=== PATIENT | male | born 1955 | race Caucasian/White ===

== ENCOUNTER 2020-10-31 11:08 | Emergency (ER) | payer MEDICAID, SELFPAY ==
[2020-10-31 11:18] VITALS: BP 120/79; PULSE 105; RESP 32; TEMP 36.9; O2SAT 92; BMI 31.9
--- NOTE | 2020-10-31 11:27 | XR_ITS ---
WS: [id number] Exam: XR chest 1V portable [id number] Date/Time of Exam: 10/31/2020 11:27 AM Reason For Exam: chest pain Comparison 07/16/2017. There are mild groundglass infiltrates in the mid and lower left lung and also the right lower lung z one. Normal cardiomediastinal structures and bony elements. Operative fusion of the lower cervical sp ine. Anchoring screw in the left humeral head. XR/XR chest 1V portable [id number] IMPRESSION: 1. Mild groundglass infiltrates in the mid and lower left lung and right lower lung zone suggesting pneumonia.
--- NOTE | 2020-10-31 11:27 | ECG_ITS ---
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 Measurements Intervals [place] Rate: 104 P: 55 [place]: 172 QRS: 90 QRSD: 98 T: 62 QT: 341 QTc: 450 Interpretive Statements SINUS TACHYCARDIA POSSIBLE LEFT ATRIAL ENLARGEMENT [-0.1mV P WAVE IN V1/V2] ABNORMAL RHYTHM ECG No previous ECG available for comparison Electronically Signed On 10-31-2020 15:01:17 WIRED MUSIC OPERATOR by Carroll Thao M.D. [email or web address] Companymagee general hospitalEllevationpromedica toledo hospitalClipClock/store/NU/[id number] f
--- NOTE | 2020-10-31 11:51 | ED_ITS ---
HPI - Chest Pain General: Chief Complaint: Chest Pain Stated Complaint: CHEST PAINS Time Seen by Provider: 10/31/20 11:23 History of Present Illness: HPI narrative: The patient is a 65-year-old male with past medical history coronary artery disease, ID x2, COPD who comes to the ER complaining of left-sided chest pain that feels similar to previous ID. He says he had the same episode yesterday and took 2 nitroglycerin which helped relieve his pain. Also says he passed out yesterday at some point and recovered spontaneously. Also admits shortness of breath and says he used to have prescriptions for albuterol but the [place] quit sending them to him for some reason he does not know. He has a history of anaphylactic reaction to aspirin and will not be given this medication MD complaint: chest pain Pertinent past history: coronary artery disease and prior ID Onset (ago): hour(s) (1) Timing of current episode: episodic Prior episodes: Yes Onset: during rest and during exertion Pain location: substernal and left chest Pain radiation: none Severity: moderate Quality: heaviness and similar to prior ID Relieving factors: nitroglycerin Exacerbating factors: exertion Associated symptoms: Reports dyspnea; Deny fever(s), leg edema, nausea, palpitations or vomiting Treatment prior to arrival: none Review of Systems General: Reports: 10 or more systems reviewed and unremarkable except in HPI and below Const: Denies: fever(s) Eyes: Denies: change in vision, blurry vision or eye redness ENMT: Denies: throat pain, swelling of lips/tongue, ear or mastoid pain or nasal congestion Card: Reports: chest pain and dyspnea on exertion; Denies: palpitations, irregular heart rhythm, edema or orthopnea Resp: Reports: dyspnea and non-productive cough (chronic) GI: Denies: nausea or vomiting : Denies: flank pain, urinary frequency or urinary urgency Musc: Denies: neck pain, back pain, extremity pain, joint pain, joint redness, limited range of motion or muscle weakness Skin/Breast: Denies: rash, pruritus, erythema, skin pain or skin tenderness Neuro: Denies: headache(s), numbness in extremities, weakness in extremities, sensory changes, difficulty walking, dizziness, confusion or Slurred speech present Psych: Reports: anxiety; Denies: depression Endo: Denies: polyuria All/Imm: Denies: urticaria, throat swelling or tongue swelling Physical Exam Const: COMMON NORMALS: no acute distress, average body habitus, patient oriented x3, no limitations, healthy appearing, alert and well nourished GENERAL APPEARANCE: cooperative, comfortable and well developed ORIENTATION/CONSCIOUSNESS: Yes awake, Yes oriented to person, Yes oriented to place and Yes oriented to time HENMT: COMMON NORMALS: normocephalic, external ears normal and Normal external nose present HEAD & SCALP: normal to inspection and normocephalic NOSE: Normal external nose present EXTERNAL EAR: Yes external ears normal MOUTH: Normal oral and palatal mucosa present THROAT: posterior oropharynx normal Eye: COMMON NORMALS: Equal, round and reactive pupils present and EOMs intact bilaterally GENERAL EYE: appearance normal, both eyes and all related structures PUPIL: Yes Equal, round and reactive pupils present Neck/C-Spine: COMMON NORMALS: full ROM, no lymphadenopathy, no meningeal signs and no JVD GENERAL: Yes normal visual inspection Lymph: LYMPHATIC: no lymphadenopathy noted Chest: COMMONS NORMALS: normal inspection of the chest and normal palpation of entire chest wall Resp: COMMON NORMALS: normal respiratory effort, No retractions, No use of accessory muscles, clear to auscultation bilaterally and percussion normal EFFORT & INSPECTION: Yes able to speak in complete sentences AUSCULTATION: clear to auscultation bilaterally PERCUSSION: percussion normal Cardio: COMMON NORMALS: no JVD, regular rate, regular rhythm, S1 normal heart sound present, S2 normal heart sound present and Peripheral pulses 2+ throughout RATE: regular rate RHYTHM: regular rhythm HEART SOUNDS: S1 normal heart sound present and S2 normal heart sound present PERIPHERAL PULSES: Peripheral pulses 2+ throughout GI: COMMON NORMALS: Normal to inspection, nondistended, normoactive bowel sounds present, Soft to palpation, non-tender and no masses INSPECTION: Yes normal to inspection PALPATION: Yes Soft to palpation : COMMON NORMALS: Yes no CVA tenderness BLADDER/KIDNEY EXAM: Yes no CVA tenderness Back/Pelvis: COMMON NORMALS: no CVA tenderness, thoracic and lumbar spine normal to inspection, no thoracic nor lumbar tenderness and thoraco-lumbar ROM normal Extremity: COMMON NORMALS: normal to inspection, full ROM, capillary refill normal, no joint enlargement and no pedal edema GENERAL: Yes normal exam except as noted Neuro: COMMON NORMALS: patient oriented x3, CN's II-XII intact bilaterally, moves all extremities, no focal motor deficits, no sensory deficits noted and gait normal SENSORIUM/ORIENTATION: Yes alert, Yes oriented to person, Yes oriented to place and Yes oriented to time MENINGEAL SIGNS: Yes no meningeal signs Psych: COMMON NORMALS: mental status grossly normal, Normal thought process present, cooperative, normal affect and speech normal APPEARANCE: Yes unkempt ATTITUDE: Yes calm SPEECH: Yes normal speech MOOD & AFFECT: Yes anxious THOUGHT PROCESS: Normal thought process present Skin: COMMON NORMALS: no rashes or lesions noted GENERAL SKIN EXAM: no rashes or lesions noted Course Vital Signs: Vital signs: Vital Signs Temperature 98.5 F 10/31/20 11:18 Pulse Rate 108 H 10/31/20 14:15 Respiratory Rate 20 H 10/31/20 12:10 Blood Pressure 120/79 10/31/20 11:18 Pulse Oximetry 90 10/31/20 14:15 MDM - Chest Pain 2 MDM Narrative: Medical decision making narrative: The patient came in complaining of typical left-sided angina pain similar to his previous ID and chest x-ray showed bilateral pneumonia. I had him set to be admitted to the hospitalist and he demanded to leave AGAINST MEDICAL ADVICE, signed out AGAINST MEDICAL ADVICE while I was on the phone with the hospitalist admitting another patient. The nurse advised him to stay and discussed from heart attack and pneumonia. He refused and signed AGAINST MEDICAL ADVICE and walked out on his own. He said he will not stay on New 's Yasmin Lab Data: Labs: Lab Results 10/31/20 10/31/20 10/31/20 Range/Units 11:36 11:36 11:36 WBC 4.1 (4.0-10.0) 10^3/ uL RBC 5.03 (4.1-5.3) 10^6/u L Hgb 15.0 (11.7-16.6) g/dL Hct 44.0 (42.0-52.0) % MCV 87.5 (80-94) fL MCH 29.8 (28.0-34.0) pg MCHC 34.1 (30.0-36.0) g/dL RDW 12.2 (12.1-15.1) % Plt Count 192 (130-400) 10^3/c mm MPV 9.6 (7.4-10.4) fL Neut % (Auto) 78.1 % Lymph % (Auto) 13.8 % [place] % (Auto) 7.2 % Eos % (Auto) 0.0 % Baso % (Auto) 0.2 % Neut # (Auto) 3.16 (1.8-7.7) 10^3/u L Lymph # (Auto) 0.6 L (0.8-4.8) 10^3/u L [place] # (Auto) 0.3 (0.2-0.9) 10^3/u L Eos # (Auto) 0.0 (0.0-0.8) 10^3/u L Baso # (Auto) 0.0 (0.0-0.1) 10^3/u L Nucleated RBC % (a uto) 0 % Nucleated RBCs # 0.0 /100WBC PT 13.50 (12.1-14.9) SECO NDS INR 1.00 (0.8-1.2) D-Dimer 1.84 H (0-0.59) ug/mIFE U Sodium 135 L (136-145) mmol/L Potassium 4.3 (3.5-5.1) mmol/L Chloride 98 (98-107) mmol/L Carbon Dioxide 23 (22-29) mmol/L Anion Gap 18.3 (5-19) BUN 16 (8-23) mg/dL Creatinine 0.9 (0.7-1.2) mg/dL GFR Calculation 85.2 L (90-130) mL/min Glucose 113 (65-115) mg/dL Calculated Osmolal ity 282 L (285-295) mOsm/k g Calcium 9.0 (8.5-10.5) mg/dL Total Bilirubin 0.8 (0.15-1.2) mg/dL AST 31 (0-40) U/L ALT 21 (0-41) U/L Alkaline Phosphata se 104 (40-130) IU/L Troponin T Baselin e (0-15) ng/L Troponin T 120 Min buckland (0-15) ng/L Delta Troponin T (0-10) ABS# NT-Pro-B Natriuret Pep 38 (0-125) pg/mL Total Protein 7.6 (6.6-8.7) g/dL Albumin 3.5 (3.5-5.2) g/dL Globulin 4.1 (1.3-4.6) g/dL Urine Color (Yellow) Urine Appearance (CLEAR) Urine pH (5-7) Ur Specific Gravit y (1.005-1.030) Urine Protein (Negative) Urine Glucose (UA) (Normal) Urine Ketones (Negative) Urine Blood (Negative) Urine Nitrate (Negative) Urine Bilirubin (Negative) Urine Urobilinogen (Negative) mg/dL Ur Leukocyte Nichole ase (Negative) Urine RBC (0-2) /hpf Urine WBC (0-5) /hpf Ur Squamous Epith Cells (0-5) /hpf Amorphous Sediment Urine Bacteria (NONE) /hpf 10/31/20 10/31/20 10/31/20 Range/Units 11:36 12:20 13:43 WBC (4.0-10.0) 10^3/ uL RBC (4.1-5.3) 10^6/u L Hgb (11.7-16.6) g/dL Hct (42.0-52.0) % MCV (80-94) fL MCH (28.0-34.0) pg MCHC (30.0-36.0) g/dL RDW (12.1-15.1) % Plt Count (130-400) 10^3/c mm MPV (7.4-10.4) fL Neut % (Auto) % Lymph % (Auto) % [place] % (Auto) % Eos % (Auto) % Baso % (Auto) % Neut # (Auto) (1.8-7.7) 10^3/u L Lymph # (Auto) (0.8-4.8) 10^3/u L [place] # (Auto) (0.2-0.9) 10^3/u L Eos # (Auto) (0.0-0.8) 10^3/u L Baso # (Auto) (0.0-0.1) 10^3/u L Nucleated RBC % (a uto) % Nucleated RBCs # /100WBC PT (12.1-14.9) SECO NDS INR (0.8-1.2) D-Dimer (0-0.59) ug/mIFE U Sodium (136-145) mmol/L Potassium (3.5-5.1) mmol/L Chloride (98-107) mmol/L Carbon Dioxide (22-29) mmol/L Anion Gap (5-19) BUN (8-23) mg/dL Creatinine (0.7-1.2) mg/dL GFR Calculation (90-130) mL/min Glucose (65-115) mg/dL Calculated Osmolal ity (285-295) mOsm/k g Calcium (8.5-10.5) mg/dL Total Bilirubin (0.15-1.2) mg/dL AST (0-40) U/L ALT (0-41) U/L Alkaline Phosphata se (40-130) IU/L Troponin T Baselin e 13 (0-15) ng/L Troponin T 120 Min buck[place] 11.15 (0-15) ng/L Delta Troponin T -1.85 L (0-10) ABS# NT-Pro-B Natriuret Pep (0-125) pg/mL Total Protein (6.6-8.7) g/dL Albumin (3.5-5.2) g/dL Globulin (1.3-4.6) g/dL Urine Color Dark yellow (Yellow) Urine Appearance Clear (CLEAR) Urine pH 6 (5-7) Ur Specific Gravit y 1.015 (1.005-1.030) Urine Protein 2+ H (Negative) Urine Glucose (UA) Norm (Normal) Urine Ketones 2+ H (Negative) Urine Blood 2+ H (Negative) Urine Nitrate Negative (Negative) Urine Bilirubin 1+ H (Negative) Urine Urobilinogen Norm (Negative) mg/dL Ur Leukocyte Nichole ase Trace H (Negative) Urine RBC None (0-2) /hpf Urine WBC Rare (0-5) /hpf Ur Squamous Epith Cells None (0-5) /hpf Amorphous Sediment Not Reportable Urine Bacteria 1+ H (NONE) /hpf Discharge Plan Discharge Patient Disposition: Left Against Medical Advice Clinical Impression: Chest pain Qualifiers: Chest pain type: unspecified Qualified Code(s): R07.9 - Chest pain, unspecified Pneumonia Qualifiers: Pneumonia type: due to unspecified organism Laterality: bilateral Lung location: lower lobe of lung Qualified Code(s): J18.9 - Pneumonia, unspecified organism Condition: Serious Prescriptions: No Action cyclobenzaprine 10 mg Tablet 10 mg PO TID PRN (Reason: muscle spasms) RF: 0 metoprolol tartrate 100 mg Tablet 100 mg PO DAILY@0900 RF: 0 meloxicam 15 mg Tablet 15 mg PO DAILY PRN (Reason: pain/inflammation) RF: 0 lisinopril 20 mg Tablet 10 mg PO DAILY@0900 RF: 0 nitroglycerin 0.4 mg Tablet, Sublingual 0.4 mg SUBLINGUAL Q5M PRN (Reason: chest pains) RF: 0 epinephrine 0.3 mg/0.3 mL Auto-Injector See Rx Instructions .ROUTE .COMPLEX RF: 0 cholecalciferol (vitamin D3) 50 mcg (2,000 unit) Tablet 50 mcg PO DAILY@0900 RF: 0 Coding Level of Care Code ED Packaging Designer for Reggieg Fwd Exam Comprehensive
[2020-10-31 11:53] LABS: Basophils % 0.2 %; Lymphocytes # 0.6 10^3/uL (0.8-4.8); Lymphocytes % 13.8 %; Mean Corpuscular HGB Conc 34.1 g/dL (30.0-36.0); Mean Corpuscular Hemoglobin 29.8 pg (28.0-34.0); Mean Corpuscular Volume 87.5 fL (80-94); Mean Platelet Volume 9.6 fL (7.4-10.4); Monocytes # 0.3 10^3/uL (0.2-0.9); Monocytes % 7.2 %; Neutrophils # 3.16 10^3/uL (1.8-7.7); Neutrophils % 78.1 %; Nucleated Red Blood Cells % 0 %; Platelet Count 192 10^3/cmm (130-400); Red Blood Count 5.03 10^6/uL (4.1-5.3); Red Cell Distribution Width 12.2 % (12.1-15.1); White Blood Count 4.1 10^3/uL (4.0-10.0)
[2020-10-31] MEDS: albuterol 8 gm MDI 2 PUFF INHALATION (12:07)
[2020-10-31 12:10] VITALS: PULSE 101; RESP 20; O2SAT 96
[2020-10-31 12:20] LABS: D Dimer 1.84 ug/mIFEU (0-0.59)
[2020-10-31] MEDS: nitroglycerin 0.4 mg sublingual Tablet SUBLINGUAL (12:31)
[2020-10-31] MEDS: cefTRIAXone 1,000 MG in sodium chloride 0.9% (plus) 50 ML 100 MG IV (12:31)
[2020-10-31 12:32] LABS: Troponin(5th) Baseline 13 ng/L (0-15)
[2020-10-31 12:35] VITALS: O2SAT 86
[2020-10-31 12:40] VITALS: O2SAT 93
[2020-10-31 12:49] LABS: Blood Urine 2+ (Negative); Glucose Urine UA Norm (Normal); Ketones Urine 2+ (Negative); Nitrate Urine Negative (Negative); Protein Urine 2+ (Negative); Specific Gravity, Urine 1.015 (1.005-1.030); Urine Appearance Clear (CLEAR); Urine Color Dark Yellow (Yellow); pH Urine 6 (5-7)
[2020-10-31 12:50] LABS: Add Urine Microscopic? YES; Bilirubin Urine 1+ (Negative); Leukocyte Esterase Urine Trace (Negative); Urobilinogen Urine Norm (Negative)
[2020-10-31 12:56] LABS: Bacteria Urine 1+ /hpf; WBC Urine RARE /hpf (0-5)
--- NOTE | 2020-10-31 13:27 | ECG_ITS ---
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 Measurements Intervals [place] Rate: 102 P: 18 [place]: 148 QRS: 74 QRSD: 97 T: 61 QT: 345 QTc: 449 Interpretive Statements SINUS TACHYCARDIA ABNORMAL RHYTHM ECG Compared to ECG 10/31/2020 11:21:16 No significant changes Electronically Signed On 10-31-2020 15:04:55 ROLLING UP MACHINE OPERATOR by Carroll Thao M.D. [email or web address] general hospitalCollege of Nursing [facility].[employer]/store/OM/[id number]
[2020-10-31 14:10] LABS: Alanine Aminotransferase 21 U/L (0-41); Albumin Level 3.5 g/dL (3.5-5.2); Alkaline Phosphatase 104 IU/L (40-130); Anion Gap 18.3 (5-19); Aspartate Amino Transferase 31 U/L (0-40); Blood Urea Nitrogen 16 mg/dL (8-23); Carbon Dioxide 23 mmol/L (22-29); Chloride 98 mmol/L (98-107); Globulin 4.1 g/dL (1.3-4.6); Glomerular Filtration Rate 85.2 mL/min (90-130); Glucose 113 mg/dL (65-115); NT Pro B Type Natriuretic Pept 38 pg/mL (0-125); Osmolality Calculated 282 mOsm/kg (285-295); Potassium 4.3 mmol/L (3.5-5.1); Sodium 135 mmol/L (136-145); Total Bilirubin 0.8 mg/dL (0.15-1.2); Total Protein 7.6 g/dL (6.6-8.7)
[2020-10-31 14:15] VITALS: PULSE 108; O2SAT 90
[2020-10-31 14:22] LABS: Troponin 5 2HR 11.15 ng/L (0-15); Troponin 5 2HR Delta -1.85 ABS# (0-10)
== END 2020-10-31 14:15 | disposition left against medical advice (07) ==
PROVIDERS: Emergency Provider Family Medicine
DX: R07.9 Chest pain, unspecified (principal); J18.9 Pneumonia, unspecified organism
CPT/HCPCS: 12345; 36415; 71045; 80053; 81001; 83880; 84484; 85025; 85378; 85610; 93005; 94640; 96365; 99282; 99284; J0696; J3535